=== PATIENT | female | born 1995 | race Caucasian/White ===

== ENCOUNTER → 2020-02-09 17:52 | Observation (INO) ==
[2020-02-09 17:24] LABS: Bacteria,Urine Few per hpf (None-Few); Bilirubin,Urine Negative (Negative); Blood,Urine Negative (Negative); Clarity,Urine Turbid (Clear); Color,Urine Light-Yellow (Yellow); Glucose,Urine (UA) Normal (Normal); Ketones,Urine 60 mg/dL (Negative); Leukocyte Esterase,Urine Large (Negative); Mucus,Urine Few per lpf (None-Few); Nitrite,Urine Negative (Negative); Protein,Urine Trace mg/dL (Neg-Trace); Specific Gravity,Urine 1.024 (1.010-1.025); Squamous Epithelial Cell,Urine Few per hpf (None-Few); Urobilinogen,Urine Normal (Normal); WBC,Urine 15-30 per hpf (0-3)
== END | disposition home or self-care (01) ==
LOC: 1NENULAB
PROVIDERS: ADMIT Obstetrics & Gynecology; ATTEND Obstetrics & Gynecology

== ENCOUNTER → 2020-04-05 16:40 | Observation (INO) ==
[2020-04-05 15:08] LABS: Protein/Creatinine Ratio,Urine 0.17 mg/mg (0.00-0.20)
[~2020-04-05 16:40] MED LIST: Acetaminophen/Butalbital/CaffeineTABLET PO PRN
== END | disposition home or self-care (01) ==
LOC: 1NENULAB
PROVIDERS: ADMIT Obstetrics & Gynecology; ATTEND Obstetrics & Gynecology

== ENCOUNTER 2020-05-18 10:00 | Inpatient (IN) ==
[2020-05-18] MEDS ORDERED: Famotidine 20 MG/2 ML VIAL IVP PRN (10:13)
[2020-05-18] MEDS ORDERED: Naloxone 0.4 MG/ML INJ IVP PRN (10:13)
[2020-05-18] MEDS ORDERED: Metoclopramide 10 MG/2 ML VIAL IVP PRN ×2 (10:13→16:30)
[2020-05-18] MEDS ORDERED: Ringers Solution, Lactated 1,000 ML IVC SCH (10:15)
[2020-05-18 11:13] LABS: Amphetamine Screen,Urine Negative ng/mL (Cutoff=1000); Barbiturate Screen,Urine Negative ng/mL (Cutoff=200); Benzodiazepines Screen,Urine Negative ng/mL (Cutoff=200); Cannabinoid Screen,Urine Negative ng/mL (Cutoff = 50); Cocaine Screen,Urine Negative ng/mL (Cutoff= 300); Opiate Screen,Urine Negative ng/mL (Cutoff=300); Phencyclidine Screen,Urine Negative ng/mL (Cutoff=25)
[2020-05-18 11:15] LABS: Basophils % 0.3 %; Hematocrit 33.6 % (35.3-44.9); Hemoglobin 10.6 g/dL (11.5-15.4); Immature Granulocytes % 0.4 % (0-4); Lymphocytes # 1.3 K/mcL (0.6-4.6); Lymphocytes % 19.1 %; Mean Corpuscular HGB Conc 31.5 g/dL (31.6-35.5); Mean Corpuscular Hemoglobin 25.4 pg (28.0-33.3); Mean Corpuscular Volume 80.4 fL (83.0-100.0); Mean Platelet Volume 10.8 fL (9.4-12.4); Monocytes # 0.4 K/mcL (0.0-1.3); Platelet Count 144 K/mcL (140-400); Red Blood Count 4.18 M/mcL (3.82-4.97); Red Cell Distribution Width 15.7 % (11.5-14.5); Segmented Neutrophils % 74.2 %; White Blood Count 6.8 K/mcL (4.3-11.1)
[2020-05-18] MEDS ORDERED: Clindamycin 900 MG/50 ML 900 MG/50 ML IV.SOLN IVPB ONE (11:19)
[2020-05-18] MEDS ORDERED: Oxytocin 20 units/ LR 1000 mL 40 UNIT/2,000 ML BAG IVC ONE (11:47)
[2020-05-18] MEDS ORDERED: *HR* FentaNYL (PF) 100 MCG/2 ML VIAL ONE (11:53)
[2020-05-18] MEDS ORDERED: *HR* Morphine Sulfate/PF 10 MG/10 ML AMPUL ONE (11:53)
[2020-05-18] MEDS ORDERED: EPHEDrine 50 MG/ML VIAL ONE (11:55)
[2020-05-18] MEDS ORDERED: Ondansetron 4 MG/2 ML VIAL ONE (12:31)
[2020-05-18] MEDS ORDERED: Acetaminophen IV 1,000 MG/100 ML BAG ONE (12:31)
[2020-05-18] MEDS ORDERED: Ketorolac 30 MG/ML VIAL ONE (12:31)
[2020-05-18] MEDS ORDERED: Dexamethasone 4 MG/ML VIAL ONE (12:31)
[2020-05-18] MEDS ORDERED: *HR* Promethazine 25 MG/ML VIAL IM ONE (15:05)
[2020-05-18] MEDS ORDERED: Oxytocin 20 units/ LR 1000 mL 20 UNIT/1,000 ML BAG IVC ONE (15:23)
[2020-05-18] MEDS ORDERED: Ondansetron 4 MG/2 ML VIAL IVP PRN (16:30)
[2020-05-18] MEDS ORDERED: Oxytocin 20 units/ LR 1000 mL 20 UNIT/1,000 ML BAG IVC SCH (16:30)
[2020-05-18] MEDS ORDERED: Clindamycin 900 MG/50 ML 900 MG/50 ML IV.SOLN IVPB SCH (16:30)
[2020-05-18] MEDS ORDERED: Sennosides 8.6 MG TABLET PO PRN (16:30)
[2020-05-18] MEDS ORDERED: Rho Immune Globulin 1,500 UNIT SYRINGE IM ONE (16:30)
[2020-05-18] MEDS ORDERED: Simethicone 80 MG TAB.CHEW PO PRN (16:30)
[2020-05-18] MEDS: metroNIDAZOLE 500 MG TABLET PO SCH (18:25)
[2020-05-18] MEDS: Ibuprofen 600 MG TABLET PO PRN (21:25)
[2020-05-19] MEDS: metroNIDAZOLE 500 MG TABLET PO SCH ×4 (00:53→20:04)
[2020-05-19] MEDS ORDERED: Clindamycin 900 MG/50 ML 900 MG/50 ML IV.SOLN IVPB SCH (02:30)
[2020-05-19] MEDS ORDERED: Ringers Solution, Lactated 1,000 ML ONE (03:18)
[2020-05-19] MEDS: Ibuprofen 600 MG TABLET PO PRN ×4 (03:21→20:04)
[2020-05-19 05:17] LABS: Basophils % 0.1 %; Hematocrit 19.1 % (35.3-44.9); Immature Granulocytes % 0.9 % (0-4); Lymphocytes # 1.1 K/mcL (0.6-4.6); Lymphocytes % 13.5 %; Mean Corpuscular HGB Conc 31.4 g/dL (31.6-35.5); Mean Corpuscular Hemoglobin 25.9 pg (28.0-33.3); Mean Corpuscular Volume 82.3 fL (83.0-100.0); Mean Platelet Volume 10.8 fL (9.4-12.4); Monocytes # 0.5 K/mcL (0.0-1.3); Monocytes % 5.8 %; Neutrophils # 6.5 K/mcL (1.6-8.9); Platelet Count 124 K/mcL (140-400); Red Blood Count 2.32 M/mcL (3.82-4.97); Red Cell Distribution Width 15.8 % (11.5-14.5); Segmented Neutrophils % 79.7 %; White Blood Count 8.2 K/mcL (4.3-11.1)
[2020-05-19 06:10] LABS: Basophils % 0.1 %; Hematocrit 18.4 % (35.3-44.9); Immature Granulocytes % 0.7 % (0-4); Lymphocytes # 1.1 K/mcL (0.6-4.6); Lymphocytes % 14.5 %; Mean Corpuscular HGB Conc 31.5 g/dL (31.6-35.5); Mean Corpuscular Hemoglobin 25.9 pg (28.0-33.3); Mean Corpuscular Volume 82.1 fL (83.0-100.0); Mean Platelet Volume 10.7 fL (9.4-12.4); Monocytes # 0.5 K/mcL (0.0-1.3); Monocytes % 6.1 %; Neutrophils # 5.8 K/mcL (1.6-8.9); Platelet Count 117 K/mcL (140-400); Red Blood Count 2.24 M/mcL (3.82-4.97); Segmented Neutrophils % 78.6 %; White Blood Count 7.4 K/mcL (4.3-11.1)
[2020-05-19 06:13] LABS: Hemoglobin 5.8 g/dL (11.5-15.4)
[2020-05-19] MEDS ORDERED: 0.9 % Sodium Chloride 250 ML ONE ×2 (07:00→11:08)
[2020-05-19] MEDS ORDERED: NON-FORMULARY MEDICATION 1 EACH EACH (Ferrous Sulfate [Iron] 325 MG) PO SCH (09:00)
[2020-05-19] MEDS: Prenatal Vit/FA 1 EACH TABLET PO SCH (09:10)
[2020-05-19] MEDS ORDERED: Rho Immune Globulin 1,500 UNIT SYRINGE IM ONE (11:38)
[2020-05-19] MEDS: *HR* OxyCODONE/APAP 5/325 TABLET PO PRN ×2 (12:22→18:14)
[2020-05-19 20:41] LABS: Hematocrit 26.6 % (35.3-44.9)
[2020-05-19 20:43] LABS: Hemoglobin 8.4 g/dL (11.5-15.4)
[2020-05-20] MEDS: *HR* OxyCODONE/APAP 5/325 TABLET PO PRN (00:15)
[2020-05-20] MEDS: metroNIDAZOLE 500 MG TABLET PO SCH (07:48)
[2020-05-20] MEDS: Ibuprofen 600 MG TABLET PO PRN (07:48)
[2020-05-20] MEDS: Prenatal Vit/FA 1 EACH TABLET PO SCH (07:48)
[2020-05-20 07:58] VITALS: BP 107/68
== END 2020-05-20 12:29 | disposition home or self-care (01) | DRG 788 ==
LOC: 1NENULAB 10:04 → 1NENUOBS 15:44
PROVIDERS: ADMIT Obstetrics & Gynecology; ATTEND Obstetrics & Gynecology